=== PATIENT | female | born 1985 | race Caucasian/White ===

== ENCOUNTER 2017-05-09 22:25 | Emergency (ER) | payer MEDICARE ==
[2017-05-10 00:47] LABS: RED BLOOD COUNT 5.27 M/UL (4.00-5.10); WHITE BLOOD COUNT 12.7 K/UL (4.5-11.0)
[2017-05-10 01:04] LABS: BUN/CREATININE RATIO 14 (0-10)
== END 2017-05-10 02:30 | disposition home or self-care (01) ==
LOC: ER1 22:25
PROVIDERS: Physician Assistant
DX: N39.0 Urinary tract infection, site not specified (principal); H11.31 Conjunctival hemorrhage, right eye; F17.210 Nicotine dependence, cigarettes, uncomplicated; M54.9 Dorsalgia, unspecified; G89.29 Other chronic pain; Z88.0 Allergy status to penicillin
CPT/HCPCS: 36415; 80053; 81001; 84702; 85025; 86900; 86901; 99284

== ENCOUNTER 2020-10-02 13:23 | Emergency (ER) | payer OTHER ==
[~2020-10-02 13:23] MED LIST: BENADRYL 25MG C25 MG PO; BENTYL 20MG TAB20 MG PO; LODINE CAP 300300 MG PO; PREDNISONE 50 M50 MG PO; ZANTAC150 MG PO; ZOFRAN ODT 4 MG4 MG PO; ZOFRAN ODT 4 MG4 MG SL; ZYRTEC10 M3 PO
== END 2020-10-02 15:23 | disposition home or self-care (01) ==
LOC: ER1 13:23
DX: M17.11 Unilateral primary osteoarthritis, right knee (principal); I10 Essential (primary) hypertension; E03.9 Hypothyroidism, unspecified; F17.210 Nicotine dependence, cigarettes, uncomplicated; Z88.0 Allergy status to penicillin; Z88.5 Allergy status to narcotic agent; W01.0XXA Fall on same level from slipping, tripping and stumbling without subsequent striking against object, initial encounter; Y92.009 Unspecified place in unspecified non-institutional (private) residence as the place of occurrence of the external cause
CPT/HCPCS: 73564; 96372; 99283; J1885